=== PATIENT | female | born 1990 | race Caucasian/White ===

== ENCOUNTER 2021-06-21 18:03 | Emergency (ER) | payer OTHER ==
[~2021-06-21] VITALS: Ht 167.6 cm; Wt 72.7 kg
[2021-06-21] MEDS ORDERED: SERT-158 PO (19:30)
[2021-06-21] MEDS ORDERED: ACET-2247 PO (19:30)
[2021-06-21 21:44] VITALS: BP 119/83
== END 2021-06-21 22:24 | disposition home or self-care (01) ==
LOC: EMS 18:08
DX: S09.90XA Unspecified injury of head, initial encounter (principal); Z79.899 Other long term (current) drug therapy; W22.8XXA Striking against or struck by other objects, initial encounter; Y93.89 Activity, other specified; Y92.89 Other specified places as the place of occurrence of the external cause; Y99.8 Other external cause status
CPT/HCPCS: 70450; 99284